=== PATIENT | male | born 1950 | race Caucasian/White ===

== ENCOUNTER → 2020-02-12 14:03 | Outpatient (BNVA) | payer MEDICARE, SELFPAY | PROVIDERS: Visit Provider Nurse Practitioner Adult Health | DX: G56.03 Carpal tunnel syndrome, bilateral upper limbs (principal); G56.23 Lesion of ulnar nerve, bilateral upper limbs; E11.42 Type 2 diabetes mellitus with diabetic polyneuropathy; J44.9 Chronic obstructive pulmonary disease, unspecified; F17.210 Nicotine dependence, cigarettes, uncomplicated; Z79.4 Long term (current) use of insulin | CPT/HCPCS: 95911; 99203 ==

== ENCOUNTER 2022-09-14 02:02 | Outpatient (CLI) | payer MEDICARE, SELFPAY ==
--- NOTE | 2022-09-14 10:15 | DI.NM_ITS ---
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 TECHNIQUE: Injected Dose: 25 mCi Tc-99m MDP Delayed Images: 2-3 hours. SPECT images. COMPARISON: MR MR SPINE LUMBAR WO CONT from 06/15/2022 FINDINGS: Increased activity is seen in the lower thoracic and upper lumbar vertebral bodies. Mildly increased activity is also seen in the mid thoracic spine. There is increased activity in both medial knees c onsistent with degenerative changes. Increased activity is noted in the left ankle and left shoulder . No abnormal activity in the pelvis. IMPRESSION: Multifocal areas of increased activity in the lower thoracic/upper lumbar levels. The patient has san d lumbar surgery and there are prominent degenerative changes noted in the lower thoracic upper lumba r levels. DATA REPOSITORY:
== END 2022-09-14 02:22 ==
PROVIDERS: Visit Provider Neurological Surgery
DX: M53.3 Sacrococcygeal disorders, not elsewhere classified (principal)
CPT/HCPCS: 78306; 78830